=== PATIENT | female | born 1955 | race Caucasian/White ===

== ENCOUNTER → 2016-11-10 | Outpatient (CLI) | payer OTHER ==
[~2016-11-10] MED LIST: ASPI-504 PO; CITA10SO4 PO; IRON; MULT-35 PO; OMEP20CA12 PO
--- NOTE | 2016-11-11 14:31 | Diagnostic Imaging Report ---
INDICATION: Screening mammogram. COMPARISON: 07/30/2014. FAMILY HISTORY: Negative. TECHNIQUE: Bilateral digital mammography was performed with computer assisted detection (CAD) software utilization. PERSONAL HISTORY: There are no reported clinical signs and/or symptoms of breast cancer. FINDINGS: The breast tissue pattern is composed of a moderate amount of radiographically dense breast tissue. RIGHT BREAST: The MLO view superiorly shows a focal opacity and questionable interval change. This could represent summation effect rather than focal asymmetry or mass. LEFT BREAST: No dominant mass, suspicious microcalcification, or other significant abnormality is identified. IMPRESSION: Additional mammographic views of the right breast are recommended. ACR BI-RADS Category 0 : Needs additional imaging Result letter will be mailed to the patient. Note: At least 10% of breast cancer is not imaged by mammography. Dictated by: Dictated on workstation # [id number]
== END ==
LOC: RAD 07:33
PROVIDERS: ATTEND Family Medicine
DX: Z12.31 Encounter for screening mammogram for malignant neoplasm of breast (principal); R92.2 Inconclusive mammogram

== ENCOUNTER → 2016-11-21 | Outpatient (CLI) | payer OTHER ==
--- NOTE | 2016-11-23 14:51 | Diagnostic Imaging Report ---
EXAMINATION: DIGITAL MAMMO RT DIAG W/CAD. COMPARISON: Screening mammogram from 11/11/2015. Targeted right breast ultrasound of 11/21/2016. INDICATION: Further evaluation of right breast asymmetries. TECHNIQUE: Digital diagnostic mammography of the right breast was performed with a computer-aided detection (CAD) system. FINDINGS: Additional mammographic views demonstrate a well-circumscribed subcentimeter ovoid mass at the 10 o'clock position. This corresponds to the group of simple cysts seen on the corresponding targeted ultrasound at the 10 o'clock position. No suspicious mammographic abnormality to suggest malignancy. IMPRESSION: The masses in the right upper outer quadrant correspond to a group of cysts. These are likely benign and followup mammogram and ultrasound of the right breast in 6 months would be advised to ensure stability. ACR BI-RADS Category 3: Probably benign findings. Result letter will be mailed to the patient. Note: At least 10% of breast cancer is not imaged by mammography. Dictated by: Dictated on workstation # [id number]
--- NOTE | 2016-11-24 08:19 | Diagnostic Imaging Report ---
INDICATION: Followup of densities noted on mammogram, right breast. Images along the upper outer aspect. FINDINGS: There are clustered cysts noted along the 12 o'clock and the 10 o'clock radial. These measure upwards of 6 mm. These are benign in appearance. There is mild ductal ectasia with no evidence of intraductal masses. IMPRESSION: Benign-appearing cyst noted along the upper outer aspect of the right breast correlating with mammographic density. Would recommend 6 month bilateral mammogram with repeat ultrasound of the right breast to confirm stability. ACR category 3 ACR BI-RADS Category 3: Probably benign findings. Result letter will be mailed to the patient. Note: At least 10% of breast cancer is not imaged by mammography. Dictated by: Dictated on workstation # [id number]
== END ==
LOC: RAD 12:59
PROVIDERS: ATTEND Family Medicine
DX: R92.2 Inconclusive mammogram (principal); N60.01 Solitary cyst of right breast
CPT/HCPCS: 76642; G0206